=== PATIENT | female | born 1965 | race Caucasian/White ===

== ENCOUNTER 2023-12-31 13:21 | Emergency (ER) | payer MEDICAID ==
[~2023-12-31] VITALS: Ht 165.1 cm; Wt 75.9 kg
[2023-12-31 13:34] VITALS: BP 178/74; PULSE 83; TEMP 98.3; O2SAT 97
[2023-12-31] MEDS ORDERED: ketorolac trometh inj. 60 MG/2 ML VIAL IM ONE (15:15)
[2023-12-31] MEDS ORDERED: CYCL-1 PO (15:23)
[2023-12-31] MEDS ORDERED: LIDO700A32 TOP (15:23)
[2023-12-31] MEDS: cyclobenzaprine 10mg tablet PO ONE (15:36)
[2023-12-31] MEDS: dexamethasone sod phosphate 10mg/ml inj IM STA (15:36)
[2023-12-31 15:58] VITALS: RESP 14
[2023-12-31] MEDS: ketorolac trometh. 30mg/ml inj. IM ONE (15:58)
== END 2023-12-31 16:18 | disposition home or self-care (01) ==
LOC: ER 13:21
DX: G89.29 Other chronic pain (principal); M54.50 Low back pain, unspecified; Z79.899 Other long term (current) drug therapy
CPT/HCPCS: 72100; 96372; 99284; J1100; J1885

== ENCOUNTER 2024-05-16 11:36 | Emergency (ER) | payer MEDICAID ==
[~2024-05-16] VITALS: Ht 165.1 cm; Wt 74.3 kg
[~2024-05-16 11:36] MED LIST: CYCL-1 PO; LIDO700A32 TOP
[2024-05-16] MEDS: ketorolac trometh 30MG/ML vial 30 MG/ML VIAL IM ONE (13:15)
[2024-05-16 13:31] VITALS: BP 152/88; PULSE 75; RESP 16; TEMP 98.2; O2SAT 97
== END 2024-05-16 13:33 | disposition home or self-care (01) ==
LOC: ER 11:37
DX: M54.2 Cervicalgia (principal); Z79.899 Other long term (current) drug therapy
CPT/HCPCS: 72125; 96372; 99285; J1885

== ENCOUNTER 2024-06-11 15:37 | Outpatient (CLI) | payer MEDICAID ==
[2024-06-11 16:27] VITALS: PULSE 81; RESP 15; O2SAT 96
== END 2024-06-11 23:59 | disposition home or self-care (01) ==
LOC: RT 15:37
PROVIDERS: ATTEND Family Medicine
DX: J40 Bronchitis, not specified as acute or chronic (principal); F17.200 Nicotine dependence, unspecified, uncomplicated
CPT/HCPCS: 94010; 94760

== ENCOUNTER 2024-10-06 06:24 | Outpatient (CLI) | payer MEDICAID | END 2024-10-06 23:59 | disposition home or self-care (01) | LOC: MRI02 06:24 | PROVIDERS: ATTEND Physician Assistant Surgical | DX: M25.552 Pain in left hip (principal); M25.551 Pain in right hip | CPT/HCPCS: 72195 ==

== ENCOUNTER 2024-12-28 16:47 | Emergency (ER) | payer MEDICAID ==
[~2024-12-28] VITALS: Ht 165.1 cm; Wt 77.0 kg
[2024-12-28] MEDS ORDERED: methylPREDNISolone sod succ 125mg/2ml vial IV ONE (16:55)
--- NOTE | 2024-12-28 16:57 | Physician Documentation ---
History of Present Illness ~ Chief Complaint: Allergic Reaction Stated Complaint: ALLERIGIC REACTION Time Seen by MD: 16:53 OK to notify your PCP?: Yes Primary Medical Doctor: Seth BHAGAT 59-year-old female who presents to the emergency department by ambulance after having an allergic reaction, patient states she ate at a new [employer] food restaurant, she had profound itching, she was given 50 mg of Benadryl by the paramedics which improved the urticaria however she still has pruritus Day of Onset: December 28, 2024 Timing of Exposure: minutes Timing/Duration of Symptoms: minutes Exposed To: foods History Of: no pertinent history SOB: mild Difficulty Swallowing: none Pruritis: severe Rash: urticarial Rash Location: chest, abdomen, arm(s), leg(s) Modifying Factors: Improves with: antihistamine Associated Symptoms: wheezing Medication Reconciliation Allergies: Coded Allergies: No Known Allergies (Unverified , 12/31/23) Scheduled Cyclobenzaprine* (Cyclobenzaprine*), 1 TAB PO HS Diphenhydramine HCl (Diphedryl), 1 TAB PO TID Famotidine (Pepcid), 1 TABLET PO DAILY Lidocaine (Lidoderm), 1 PATCH TOP DAILY Prednisone (Prednisone), 4 TAB PO DAILY Scheduled PRN Epinephrine (Epipen 2-Jhony), 1 SYR IJ O PRN for allergies Review of Systems All Other Systems at this time: Reviewed and Negative Constitutional: Reports: see HPI Respiratory: Reports: stridor, wheezing Allergic/Immunologic: Reports: see HPI, hives, itching Physical Exam Vital Signs: RN Vital Signs have been reviewed: Yes, Temperature: 98.1, Source: Oral, Heart Rate: 98, Respiratory Rate: 16, BP: 196/130, Pulse Oximetry: 100, Weight: 77.000 Oxygen Flow Rate: 0 General Appearance: alert, ill-appearing, mild distress Skin: rash Progress Progress Note Elsi received this patient in sign-out 59-year-old female history of rheumatoid arthritis presenting for itching and shortness of breath following ingestion of TMH younger. Her symptoms began approximately 1 hour after ingestion. She initially had some tightness in her throat as well as urticaria. She was seen in the ED and was well-appearing. She received methylprednisone, Pepcid and Benadryl. She had resolution in all of her symptoms aside for some mild itching. I personally assessed her at 9:02 p.m. and she is looking well no respiratory distress no respiratory symptoms well-appearing with a few scattered areas of improving urticaria no other issues. She is safe for discharge at this point Results/Orders Results/Orders Completed Orders - BERT GOLDBERG MD Diphenhydramine Inj (Benadryl Inj.) (12/28/24 19:05) Medications Received in ER Medications (Trade) Dose Ordered Sig/Lucio Route PRN Reason Start Time Stop Time Status Last Admin Dose Admin (Pepcid IV inj) 20 mg ONCE ONCE IV 12/28/24 16:55 12/28/24 16:56 DC 12/28/24 17:17 20 MG (Solu-Medrol 40mg inj.) 125 mg ONCE ONCE IV 12/28/24 17:20 12/28/24 17:21 DC 12/28/24 17:20 125 MG (Benadryl inj.) 25 mg ONCE ONCE IV 12/28/24 19:05 12/28/24 19:06 DC 12/28/24 19:10 25 MG Vital Signs 12/28/24 12/28/24 12/28/24 12/28/24 16:48 18:20 18:30 20:00 Temp 98.1 98.1 Pulse 98 51 74 Resp 16 16 16 16 B/P (MAP) 196/130 160/80 (106) 174/99 (124) Pulse Ox 100 99 99 O2 Flow Rate 0 0 0 Departure Disposition: 01 HOME / SELF CARE / HOMELESS Impression: Primary Impression: Acute allergic reaction Condition: Improved Additional Instructions: You may start taking your prednisone tomorrow if you still have symptoms. Otherwise avoid the food you ate today and follow up routinely with your primary care physician. If you have reoccurrence of your difficulty breathing please return to the emergency department Referrals: NO PRIMARY CARE PROVIDER (PCP) Prescriptions Epinephrine (Epipen 2-Jhony) 0.3 Mg/0.3 Ml Auto.injct 1 SYR IJ O PRN for allergies for 1 Day, #1 EACH 2 Refills Prov: RENE SANABRIA DO 12/28/24 Diphenhydramine HCl (Diphedryl) 25 Mg Tablet 1 TAB PO TID for 7 Days, #21 AHFU Prov: RENE SANABRIA DO 12/28/24 Famotidine (Pepcid) 40 Mg Tablet 1 TABLET PO DAILY for 7 Days, #7 TABLET 1 Refill may sub any h2 raj per formulary at high dose Prov: RENE SANABRIA DO 12/28/24 Prednisone (Prednisone) 10 Mg Tablet 4 TAB PO DAILY for 5 Days, #20 TAB Prov: RENE SANABRIA DO 12/28/24 Comments Please use the medications as directed, if you have any recurrent symptoms or worsening symptoms please use the EpiPen and return to the ER immediately, follow up with your doctor to get referred to an change advisor and avoid the foods that you eight this evening. Education Educated: Patient, Family Educated regarding: diagnosis, treatment Signature Scribe Signature: fly Attestation: RENE Pierson DO December 28, 2024 16:57 BERT GOLDBERG MD December 28, 2024 21:04
[2024-12-28] MEDS: famotidine/PF 10 mg/ml inj IV ONE (17:17)
[2024-12-28] MEDS: methylPREDNISolone sod succ/PF 40mg inj. IV ONE (17:20)
[2024-12-28] MEDS ORDERED: PRED10TA23 PO (18:03)
[2024-12-28] MEDS ORDERED: FAMO40TA73 PO (18:03)
[2024-12-28] MEDS ORDERED: DIPH25TA81 PO (18:03)
[2024-12-28] MEDS ORDERED: EPIN0.3P3 IJ (18:06)
[2024-12-28] MEDS: diphenhydrAMINE 50 mg/ml inj IV ONE (19:10)
[2024-12-28] MEDS: hydrOXYzine 25 MG tablet PO ONE (21:15)
[2024-12-28 21:19] VITALS: BP 154/82; PULSE 70; RESP 18; TEMP 97.6; O2SAT 99
== END 2024-12-28 21:21 | disposition home or self-care (01) ==
LOC: ER 16:48
DX: T78.40XA Allergy, unspecified, initial encounter (principal); X58.XXXA Exposure to other specified factors, initial encounter
CPT/HCPCS: 96374; 96375; 99284; J1200; J2919; J3490; Q0177